=== PATIENT | female | born 1990 | race Caucasian/White ===

== ENCOUNTER 2016-05-08 08:41 | Emergency (ER) | payer OTHER ==
[~2016-05-08 08:41] MED LIST: BUSP10TA PO; LEVO125T3 PO; OMEP10CASR PO; PAXI20TA3 PO; SING10TA32 PO
--- NOTE | 2016-05-08 10:21 | EDDOCDS ---
Physician Documentation [facility] Name: Kolton Olivares Age: 26 yrs Sex: Female : 1990 Arrival Date: 05/08/2016 Time: 08:41 Bed 7 Private MD: Titus Grace Disposition: 05/08/16 09:59 Discharged to Other. Impression: Fall (on) (from) other stairs and steps - DISCHARGE TO LABOR AND DELIVERY FOR OBSERVATION, related conditions, unspecified. - Condition is Stable. - Medication Reconciliation, Local Pharmacy Hours form. - Follow up: Maria E Benedict CNM; When: Today; Reason: Recheck today's complaints. - Problem is new. - Symptoms have improved. Historical: - Allergies: No known drug Allergies; - Home Meds: 1. BuSpar 15 mg oral tab 3 times per day 2. levothyroxine 100 mcg Oral tab once daily 3. omeprazole 40 mg Oral cpDR 2 times per day 4. Latuda 40 mg oral tab 1 tab once daily - PMHx: Anxiety; Asthma; Hypothyroidism; - PSHx: ; - Social history: Smoking status: Patient states former smoker of tobacco. No barriers to communication noted, The patient speaks fluent Divehi. - Family history: Not pertinent. - : The pt / caregiver states he / she is not on anticoagulants. Home medication list is obtained from the patient, Med[employer] import data. - Exposure Risk Screening:: None identified. 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 2 in. (157.48 cm) (R); Pain 7/10; 09:06 BP 134 / 82 (auto/); kc3 09:08 Pulse 86 MON; Pulse Ox 98% ; kc3 10:20 BP 107 / 53; Pulse 67; Resp 18; Pulse Ox 99% ; Pain 7/10; hs1 08:54 Body Mass Index 42.98 (106.59 kg, 157.48 cm) kcs MDM: 09:03 Heart Tones ordered. fg 09:22 Urinalysis Ordered. EDMS 09:22 Urine Culture Ordered. EDMS 09:39 Financial registration complete. pm4 09:45 [facility] Payment Agreement was scanned into [employer] and attached to record. pm4 09:58 Dex (Kleihauer Betke) Ordered. EDMS 09:59 Fibrinogen Ordered. EDMS Signatures: Dispatcher MedHost EDMS Gertrudis Martinez RN RN [facility] Vickie Finnegan RN RN hs1 Shamika Ramos MD MD Josesito Pan, Reg Reg pm4 The chart was reviewed and I authenticate all verbal orders and agree with the evaluation and treatment provided.Attachments: 09:45 [facility] Payment Agreement pm4 MTDD
--- NOTE | 2016-05-08 10:21 | EDDOCDS ---
Nurse's Notes [facility] Name: Kolton Olivares Age: 26 yrs Sex: Female : 1990 Arrival Date: 05/08/2016 Time: 08:41 Bed 7 Private MD: Titus Grace Diagnosis: Fall (on) (from) other stairs and steps-DISCHARGE TO LABOR AND DELIVERY FOR OBSERVATION; related conditions, unspecified Presentation: 05/08 08:50 Presenting complaint: Patient states: she has fallen twice in the last week - is 28 kcs weeks - spoke with her OB after the incidents and was told to rest and would be ok as long as no bleeding. Continues to have a lot of pain in her pelvic area - worse when she tries to open her legs. Mechanism of Injury: Fall slipped on icy steps and landed on her buttocks. Adult Sepsis Screening: The patient does not have new or worsening altered mentation. Patient's respiratory rate is less than 22. Systolic blood pressure is greater than 100. Patient has a qSOFA score of 0- Negative Sepsis Screen. Suicide/Homicide risk assessment- the patient denies having any suicidal and/or homicidal ideations and does not present with any other emotional, behavioral or mental health complaints. Status: Patient is not a child protective services specialist or dependent. Transition of care: patient was not received from another setting of care. 08:50 Acuity: JOSUE Level 3 kcs 08:50 Method Of Arrival: Walkin/Carried/Asstd kcs 10:20 Acute neurological deficits are not present. hs1 Triage Assessment: 08:54 General: Appears comfortable, well developed, well nourished, well groomed. Pain: kcs Location: pelvic area Pain currently is 7 out of 10 on a pain scale. HIV screening NA for this visit Offered previously. Neurological: Level of Consciousness is awake, alert. Respiratory: Airway is patent Respiratory effort is even, unlabored, Respiratory pattern is regular, symmetrical. : Denies vaginal bleeding. Derm: Skin is intact, is healthy with good turgor, Skin is dry, Skin is normal. 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 BuSpar 15 mg oral tab 3 times per day 2. levothyroxine 100 mcg Oral tab once daily 3. omeprazole 40 mg Oral cpDR 2 times per day 4. Latuda 40 mg oral tab 1 tab once daily - PMHx: Anxiety; Asthma; Hypothyroidism; - PSHx: ; - Social history: Smoking status: Patient states former smoker of tobacco. No barriers to communication noted, The patient speaks fluent Montenegrin. - Family history: Not pertinent. - : The pt / caregiver states he / she is not on anticoagulants. Home medication list is obtained from the patient, [employer] import data. - Exposure Risk Screening:: None identified. Screenin:23 Screening information is obtained from the patient. Fall risk: At risk due to prior kc3 history of falls, The following interventions are performed due to a positive Fall Risk Screen: Fall Risk is added to Special Handling on the patient Summary Screen. A Fall Risk Bracelet was applied to the patient. Side Rails are placed in the up position. A Call Tai is given with instruction to call for help when getting out of bed. Fall Alert bracelet is placed on the patient. Assistance ADL's: requires no assistance with activities of daily living. Abuse/DV Screen: The patient / caregiver reports he/she is: not in a situation that causes fear, pain or injury. Nutritional screening: No deficits noted. home support is adequate. 10:20 Advance Directives: There is no active DNR order. hs1 Assessment: 09:21 General: Appears uncomfortable, Behavior is appropriate for age, cooperative, Pt kc3 reports positive movement. . Pain: Location: pelvis and lower back Pain currently is 7 out of 10 on a pain scale. Alleviated by standing. Neurological: Level of Consciousness is awake, alert, obeys commands, Oriented to person, place, time. Respiratory: Respiratory effort is even, unlabored, Respiratory pattern is regular, symmetrical. : Denies vaginal bleeding. Derm: Skin is pink, warm & dry. Musculoskeletal: Circulation, motion, and sensation intact Range of motion intact in all extremities. 09:24 General: Pt's OB is Maria E Benedict hand shaker. . kc3 10:19 General: Appears in no apparent distress, comfortable, Behavior is appropriate for age, hs1 cooperative. Pain: Location: pelvis Pain currently is 8 out of 10 on a pain scale. Quality of pain is described as pressure. Derm: Skin is pink, warm & dry. normal. Vital Signs: 08:54 BP 120 / 69; Pulse 87; Resp 20; Temp 96.5(O); Pulse Ox 98% on R/A; Weight 106.59 kg kcs (R); Height 5 ft. 2 in. (157.48 cm) (R); Pain 7/10; 09:06 BP 134 / 82 (auto/); kc3 09:08 Pulse 86 MON; Pulse Ox 98% ; kc3 10:20 BP 107 / 53; Pulse 67; Resp 18; Pulse Ox 99% ; Pain 7/10; hs1 08:54 Body Mass Index 42.98 (106.59 kg, 157.48 cm) kcs Vitals: 08:54 Log In Time: May 08, 2016 at 08:41. kcs 09:21 Heart Tones 140BPM. kc3 ED Course: 08:43 Patient visited by Josesito Pan Reg. pm4 08:43 Patient moved to Waiting pm4 08:44 Titus Grace is Private Physician. pm4 08:53 Triage Initiated kcs 08:58 Pam Cunningham,RN is Primary Nurse. kcs 08:58 Patient moved to 7 kcs 08:59 Shamika Ramos MD is Attending Physician. fg 08:59 Patient visited by Shamika Ramos MD. fg 09:24 Patient visited by Pam Cunningham RN. kc3 09:26 Urine Culture Sent. kc3 09:26 Urinalysis Sent. kc3 09:45 [facility] Payment Agreement was scanned into [employer] and attached to record. pm4 09:51 Assist provider with pelvic exam: Performed by Shamika Ramos MD Patient tolerated well. kc3 No specimens obtained. 09:52 Patient visited by Pam Cunningham,MARY. kc3 09:58 Maria E Benedict CNM is Referral Physician. fg 10:14 Dex (Kleihauer Betke) Sent. kc3 10:14 Fibrinogen Sent. kc3 10:20 The patient / caregiver is instructed regarding the plan of care and ED course. hs1 10:21 No IV's were initiated during this patient's visit. hs1 Order Results: Lab Order: Urinalysis; SPEC'M 05/08/16 09:25 Test: APPEARANCE, URINE; Value: CLEAR; Range: CLEAR; Status: F Test: COLOR, URINE; Value: STRAW; Range: YELLOW; Status: F Test: PH,URINE; Value: 6.0; Range: 5.0-9.0; Units: UNITS; Status: F Test: SPECIFIC GRAVITY URINE AUTO; Value: 1.006; Range: 1.002-1.035; Status: F Test: PROTEIN, URINE AUTO; Value: NEGATIVE; Range: NEGATIVE; Units: mg/dL; Status: F Test: GLUCOSE, URINE (UA) AUTO; Value: NEGATIVE; Range: NEGATIVE; Units: mg/dL; Status: F Test: KETONE, URINE AUTO; Value: NEGATIVE; Range: NEGATIVE; Units: mg/dL; Status: F Test: UROBILINOGEN, URINE AUTO; Value: 0.2; Range: 0.0-2.0; Units: mg/dL; Status: F Test: BILIRUBIN, URINE AUTO; Value: NEGATIVE; Range: NEGATIVE; Status: F Test: NITRITE, URINE AUTO; Value: NEGATIVE; Range: NEGATIVE; Status: F Test: LEUKOCYTE ESTERASE, URINE AUTO; Value: NEGATIVE; Range: NEGATIVE; Status: F Test: BLOOD, URINE BLOOD; Value: NEGATIVE; Range: NEGATIVE; Status: F Test: WBC, URINE AUTO; Value: 0; Range: 0-3; Units: /HPF; Status: F Test: RBC, URINE AUTO; Value: 2; Range: 0-3; Units: /HPF; Status: F Test: BACTERIA, URINE AUTO; Value: NEGATIVE; Range: NEGATIVE; Status: F Test: SQUAMOUS EPITHELIAL CELL UR AU; Value: 3; Range: 0-6; Units: /HPF; Status: F Test: MUCUS, URINE; Value: SMALL; Range: NEGATIVE; Status: F Test: HYALINE CAST, URINE AUTO; Value: 0; Range: 0-1; Units: /LPF; Status: F Outcome: 09:59 Discharge ordered by Provider. fg 10:20 Discharge Assessment: Patient awake, alert and oriented x 3. No cognitive and/or hs1 functional deficits noted. Patient verbalized understanding of disposition instructions. patient administered narcotics - no. The following High Risk Discharge criteria are identified: None. Discharged to Labor and Delivery. Condition: stable. Discharge instructions given to patient, Instructed on follow up and referral plans. No special radiology studies were completed. Property :Personal belongings accompany Pt. 10:21 Patient left the ED. hs1 Signatures: Gertrudis Martinez, RN RN kcs Vickie Finnegan RN RN hs1 Shamika Ramos MD MD Pam Cunningham RN RN kc3 Josesito Pan, Reg Reg pm4 MTDD
[2016-05-08] MEDS ORDERED: LATU40TA PO (11:22)
--- NOTE | 2016-05-10 11:21 | EDDOCDS ---
Nurse's Notes [facility] Name: Kolton Olivares Age: 26 yrs Sex: Female : 1990 Arrival Date: 05/08/2016 Time: 08:41 Bed 7 Private MD: Titus Grace Diagnosis: Fall (on) (from) other stairs and steps-DISCHARGE TO LABOR AND DELIVERY FOR OBSERVATION; related conditions, unspecified Presentation: 05/08 08:50 Presenting complaint: Patient states: she has fallen twice in the last week - is 28 kcs weeks - spoke with her OB after the incidents and was told to rest and would be ok as long as no bleeding. Continues to have a lot of pain in her pelvic area - worse when she tries to open her legs. Mechanism of Injury: Fall slipped on icy steps and landed on her buttocks. Adult Sepsis Screening: The patient does not have new or worsening altered mentation. Patient's respiratory rate is less than 22. Systolic blood pressure is greater than 100. Patient has a qSOFA score of 0- Negative Sepsis Screen. Suicide/Homicide risk assessment- the patient denies having any suicidal and/or homicidal ideations and does not present with any other emotional, behavioral or mental health complaints. Status: Patient is not a claim service representative or dependent. Transition of care: patient was not received from another setting of care. 08:50 Acuity: JOSUE Level 3 kcs 08:50 Method Of Arrival: Walkin/Carried/Asstd kcs 10:20 Acute neurological deficits are not present. hs1 Triage Assessment: 08:54 General: Appears comfortable, well developed, well nourished, well groomed. Pain: kcs Location: pelvic area Pain currently is 7 out of 10 on a pain scale. HIV screening NA for this visit Offered previously. Neurological: Level of Consciousness is awake, alert. Respiratory: Airway is patent Respiratory effort is even, unlabored, Respiratory pattern is regular, symmetrical. : Denies vaginal bleeding. Derm: Skin is intact, is healthy with good turgor, Skin is dry, Skin is normal. 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 BuSpar 15 mg oral tab 3 times per day 2. levothyroxine 100 mcg Oral tab once daily 3. omeprazole 40 mg Oral cpDR 2 times per day 4. Latuda 40 mg oral tab 1 tab once daily - PMHx: Anxiety; Asthma; Hypothyroidism; - PSHx: ; - Social history: Smoking status: Patient states former smoker of tobacco. No barriers to communication noted, The patient speaks fluent Algerian. - Family history: Not pertinent. - : The pt / caregiver states he / she is not on anticoagulants. Home medication list is obtained from the patient, [employer] import data. - Exposure Risk Screening:: None identified. Screenin:23 Screening information is obtained from the patient. Fall risk: At risk due to prior kc3 history of falls, The following interventions are performed due to a positive Fall Risk Screen: Fall Risk is added to Special Handling on the patient Summary Screen. A Fall Risk Bracelet was applied to the patient. Side Rails are placed in the up position. A Call Tai is given with instruction to call for help when getting out of bed. Fall Alert bracelet is placed on the patient. Assistance ADL's: requires no assistance with activities of daily living. Abuse/DV Screen: The patient / caregiver reports he/she is: not in a situation that causes fear, pain or injury. Nutritional screening: No deficits noted. home support is adequate. 10:20 Advance Directives: There is no active DNR order. hs1 Assessment: 09:21 General: Appears uncomfortable, Behavior is appropriate for age, cooperative, Pt kc3 reports positive movement. . Pain: Location: pelvis and lower back Pain currently is 7 out of 10 on a pain scale. Alleviated by standing. Neurological: Level of Consciousness is awake, alert, obeys commands, Oriented to person, place, time. Respiratory: Respiratory effort is even, unlabored, Respiratory pattern is regular, symmetrical. : Denies vaginal bleeding. Derm: Skin is pink, warm & dry. Musculoskeletal: Circulation, motion, and sensation intact Range of motion intact in all extremities. 09:24 General: Pt's OB is Maria E Benedict licensed direct entry midwife. . kc3 10:19 General: Appears in no apparent distress, comfortable, Behavior is appropriate for age, hs1 cooperative. Pain: Location: pelvis Pain currently is 8 out of 10 on a pain scale. Quality of pain is described as pressure. Derm: Skin is pink, warm & dry. normal. Vital Signs: 08:54 BP 120 / 69; Pulse 87; Resp 20; Temp 96.5(O); Pulse Ox 98% on R/A; Weight 106.59 kg kcs (R); Height 5 ft. 2 in. (157.48 cm) (R); Pain 7/10; 09:06 BP 134 / 82 (auto/); kc3 09:08 Pulse 86 MON; Pulse Ox 98% ; kc3 10:20 BP 107 / 53; Pulse 67; Resp 18; Pulse Ox 99% ; Pain 7/10; hs1 08:54 Body Mass Index 42.98 (106.59 kg, 157.48 cm) kcs Vitals: 08:54 Log In Time: May 08, 2016 at 08:41. kcs 09:21 Heart Tones 140BPM. kc3 ED Course: 08:43 Patient visited by Josesito Pan Reg. pm4 08:43 Patient moved to Waiting pm4 08:44 Titus Grace is Private Physician. pm4 08:53 Triage Initiated kcs 08:58 Pam Cunningham,RN is Primary Nurse. kcs 08:58 Patient moved to 7 kcs 08:59 Shamika Ramos MD is Attending Physician. fg 08:59 Patient visited by Shamika Ramos MD. fg 09:24 Patient visited by Pam Cunningham RN. kc3 09:26 Urine Culture Sent. kc3 09:26 Urinalysis Sent. kc3 09:45 [facility] Payment Agreement was scanned into [employer] and attached to record. pm4 09:51 Assist provider with pelvic exam: Performed by Shamika Ramos MD Patient tolerated well. kc3 No specimens obtained. 09:52 Patient visited by Pam Cunningham,MARY. kc3 09:58 Maria E Benedict CNM is Referral Physician. fg 10:14 Dex (Kleihauer Betke) Sent. kc3 10:14 Fibrinogen Sent. kc3 10:20 The patient / caregiver is instructed regarding the plan of care and ED course. hs1 10:21 No IV's were initiated during this patient's visit. hs1 14:27 T-Sheet-- Draft Copy was scanned into [employer] and attached to record. gb Order Results: Lab Order: Urinalysis; SPEC'M 05/08/16 09:25 Test: APPEARANCE, URINE; Value: CLEAR; Range: CLEAR; Status: F Test: COLOR, URINE; Value: STRAW; Range: YELLOW; Status: F Test: PH,URINE; Value: 6.0; Range: 5.0-9.0; Units: UNITS; Status: F Test: SPECIFIC GRAVITY URINE AUTO; Value: 1.006; Range: 1.002-1.035; Status: F Test: PROTEIN, URINE AUTO; Value: NEGATIVE; Range: NEGATIVE; Units: mg/dL; Status: F Test: GLUCOSE, URINE (UA) AUTO; Value: NEGATIVE; Range: NEGATIVE; Units: mg/dL; Status: F Test: KETONE, URINE AUTO; Value: NEGATIVE; Range: NEGATIVE; Units: mg/dL; Status: F Test: UROBILINOGEN, URINE AUTO; Value: 0.2; Range: 0.0-2.0; Units: mg/dL; Status: F Test: BILIRUBIN, URINE AUTO; Value: NEGATIVE; Range: NEGATIVE; Status: F Test: NITRITE, URINE AUTO; Value: NEGATIVE; Range: NEGATIVE; Status: F Test: LEUKOCYTE ESTERASE, URINE AUTO; Value: NEGATIVE; Range: NEGATIVE; Status: F Test: BLOOD, URINE BLOOD; Value: NEGATIVE; Range: NEGATIVE; Status: F Test: WBC, URINE AUTO; Value: 0; Range: 0-3; Units: /HPF; Status: F Test: RBC, URINE AUTO; Value: 2; Range: 0-3; Units: /HPF; Status: F Test: BACTERIA, URINE AUTO; Value: NEGATIVE; Range: NEGATIVE; Status: F Test: SQUAMOUS EPITHELIAL CELL UR AU; Value: 3; Range: 0-6; Units: /HPF; Status: F Test: MUCUS, URINE; Value: SMALL; Range: NEGATIVE; Status: F Test: HYALINE CAST, URINE AUTO; Value: 0; Range: 0-1; Units: /LPF; Status: F Lab Order: Urine Culture; SPEC'M 05/08/16 09:25 Test: URINE CULTURE; Value: URINE CULTURE RESULT NO GROWTH; Status: F Lab Order: Fibrinogen; SPEC'M 05/08/16 10:12 Test: FIBRINOGEN; Value: 392; Range: 221-452; Units: MG/DL; Status: F Lab Order: Dex (Kleihauer Betke); SPEC'M 05/08/16 10:12 Test: DEX (MOY MACKENZIE); Value: 0.0000; Units: RATIO; Status: F Test Note: ; No cells seen. Outcome: 09:59 Discharge ordered by Provider. fg 10:20 Discharge Assessment: Patient awake, alert and oriented x 3. No cognitive and/or hs1 functional deficits noted. Patient verbalized understanding of disposition instructions. patient administered narcotics - no. The following High Risk Discharge criteria are identified: None. Discharged to Labor and Delivery. Condition: stable. Discharge instructions given to patient, Instructed on follow up and referral plans. No special radiology studies were completed. Property :Personal belongings accompany Pt. 10:21 Patient left the ED. hs1 Signatures: Gertrudis Martinez, RN RN [facility] Sintia Quesada, Reg Reg gb Vickie Finnegan RN RN hs1 Shamika Ramos MD MD Pam Cunningham RN RN kc3 Josesito Pan, Reg Reg pm4 Chart Complete YELENA
--- NOTE | 2016-05-10 11:21 | EDDOCDS ---
Physician Documentation [facility] Name: Kolton Olivares Age: 26 yrs Sex: Female : 1990 Arrival Date: 05/08/2016 Time: 08:41 Bed 7 Private MD: Titus Grace Disposition: 05/08/16 09:59 Discharged to Other. Impression: Fall (on) (from) other stairs and steps - DISCHARGE TO LABOR AND DELIVERY FOR OBSERVATION, related conditions, unspecified. - Condition is Stable. - Medication Reconciliation, Local Pharmacy Hours form. - Follow up: Maria E Benedict CNM; When: Today; Reason: Recheck today's complaints. - Problem is new. - Symptoms have improved. Historical: - Allergies: No known drug Allergies; - Home Meds: 1. BuSpar 15 mg oral tab 3 times per day 2. levothyroxine 100 mcg Oral tab once daily 3. omeprazole 40 mg Oral cpDR 2 times per day 4. Latuda 40 mg oral tab 1 tab once daily - PMHx: Anxiety; Asthma; Hypothyroidism; - PSHx: ; - Social history: Smoking status: Patient states former smoker of tobacco. No barriers to communication noted, The patient speaks fluent Italian. - Family history: Not pertinent. - : The pt / caregiver states he / she is not on anticoagulants. Home medication list is obtained from the patient, Med[employer] import data. - Exposure Risk Screening:: None identified. 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 2 in. (157.48 cm) (R); Pain 7/10; 09:06 BP 134 / 82 (auto/); kc3 09:08 Pulse 86 MON; Pulse Ox 98% ; kc3 10:20 BP 107 / 53; Pulse 67; Resp 18; Pulse Ox 99% ; Pain 7/10; hs1 08:54 Body Mass Index 42.98 (106.59 kg, 157.48 cm) kcs MDM: 09:03 Heart Tones ordered. fg 09:22 Urinalysis Ordered. EDMS 09:22 Urine Culture Ordered. EDMS 09:39 Financial registration complete. pm4 09:45 [facility] Payment Agreement was scanned into [employer] and attached to record. pm4 09:58 Dex (Kleihauer Betke) Ordered. EDMS 09:59 Fibrinogen Ordered. EDMS 14:27 T-Sheet-- Draft Copy was scanned into [employer] and attached to record. gb Signatures: Dispatcher [employer] EDGertrudis Anne, RN RN [facility] Sintia Quesada, Reg Reg gb Vickie Finnegan RN RN hs1 Shamika Ramos MD MD Josesito Pan, Reg Reg pm4 The chart was reviewed and I authenticate all verbal orders and agree with the evaluation and treatment provided.Attachments: 09:45 [facility] Payment Agreement pm4 14:27 T-Sheet-- Draft Copy gb Chart Complete MTDD
--- NOTE | 2016-05-10 11:21 | EDDOCDS ---
Physician Documentation [facility] Name: Kolton Olivares Age: 26 yrs Sex: Female : 1990 Arrival Date: 05/08/2016 Time: 08:41 Bed 7 Private MD: Titus Grace Disposition: 05/08/16 09:59 Discharged to Other. Impression: Fall (on) (from) other stairs and steps - DISCHARGE TO LABOR AND DELIVERY FOR OBSERVATION, related conditions, unspecified. - Condition is Stable. - Medication Reconciliation, Local Pharmacy Hours form. - Follow up: Maria E Benedict CNM; When: Today; Reason: Recheck today's complaints. - Problem is new. - Symptoms have improved. Historical: - Allergies: No known drug Allergies; - Home Meds: 1. BuSpar 15 mg oral tab 3 times per day 2. levothyroxine 100 mcg Oral tab once daily 3. omeprazole 40 mg Oral cpDR 2 times per day 4. Latuda 40 mg oral tab 1 tab once daily - PMHx: Anxiety; Asthma; Hypothyroidism; - PSHx: ; - Social history: Smoking status: Patient states former smoker of tobacco. No barriers to communication noted, The patient speaks fluent Yakut. - Family history: Not pertinent. - : The pt / caregiver states he / she is not on anticoagulants. Home medication list is obtained from the patient, [employer] import data. - Exposure Risk Screening:: None identified. 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 2 in. (157.48 cm) (R); Pain 7/10; 09:06 BP 134 / 82 (auto/); kc3 09:08 Pulse 86 MON; Pulse Ox 98% ; kc3 10:20 BP 107 / 53; Pulse 67; Resp 18; Pulse Ox 99% ; Pain 7/10; hs1 08:54 Body Mass Index 42.98 (106.59 kg, 157.48 cm) kcs MDM: 09:03 Heart Tones ordered. fg 09:22 Urinalysis Ordered. EDMS 09:22 Urine Culture Ordered. EDMS 09:39 Financial registration complete. pm4 09:45 [facility] [place] Payment Agreement was scanned into [employer] and attached to record. pm4 09:58 Dex (Kleihauer Betke) Ordered. EDMS 09:59 Fibrinogen Ordered. EDMS 14:27 T-Sheet-- Draft Copy was scanned into [employer] and attached to record. gb Signatures: Dispatcher [employer] EDGertrudis Anne, RN RN [facility] Sintia Quesada, Reg Reg gb Vickie Finnegan RN RN hs1 Shamika Ramos MD MD Josesito Pan, Reg Reg pm4 The chart was reviewed and I authenticate all verbal orders and agree with the evaluation and treatment provided.Attachments: 09:45 [facility] [place] Payment Agreement pm4 14:27 T-Sheet-- Draft Copy gb Chart Complete MTDD
== END 2016-05-08 10:21 | disposition home or self-care (01) ==
LOC: M ED 08:41
DX: M54.9 Dorsalgia, unspecified (principal); W00.2XXA Other fall from one level to another due to ice and snow, initial encounter; Y92.019 Unspecified place in single-family (private) house as the place of occurrence of the external cause; Y93.89 Activity, other specified; Y99.8 Other external cause status; O99.342 Other mental disorders complicating pregnancy, second trimester; F41.9 Anxiety disorder, unspecified; O99.513 Diseases of the respiratory system complicating pregnancy, third trimester; J45.909 Unspecified asthma, uncomplicated; E03.9 Hypothyroidism, unspecified; Z87.891 Personal history of nicotine dependence; Z79.899 Other long term (current) drug therapy; Z3A.28 28 weeks gestation of pregnancy

== ENCOUNTER 2016-05-08 10:27 | Outpatient (CLI) | payer OTHER ==
[~2016-05-08] VITALS: Ht 157.5 cm; Wt 105.0 kg
[2016-05-08 10:44] VITALS: BP 124/60
[2016-05-08] MEDS ORDERED: LATU40TA PO (11:22)
== END 2016-05-08 11:24 | disposition home or self-care (01) ==
LOC: M LDO 10:27
PROVIDERS: ATTEND Specialist
DX: O99.89 Other specified diseases and conditions complicating pregnancy, childbirth and the puerperium (principal); R10.2 Pelvic and perineal pain; W10.9XXA Fall (on) (from) unspecified stairs and steps, initial encounter; Y92.9 Unspecified place or not applicable; Y93.9 Activity, unspecified; Y99.9 Unspecified external cause status; Z3A.26 26 weeks gestation of pregnancy

== ENCOUNTER 2016-06-29 21:27 | Outpatient (CLI) | payer OTHER ==
[~2016-06-29] VITALS: Ht 157.5 cm; Wt 110.0 kg
[~2016-06-29 21:27] MED LIST changes: +LATU40TA PO
[2016-06-29] MEDS ORDERED: PRENTAB9 PO (22:04)
== END 2016-06-29 22:45 | disposition home or self-care (01) ==
LOC: M LDO 21:27
PROVIDERS: ATTEND Advanced Practice Midwife
DX: O47.03 False labor before 37 completed weeks of gestation, third trimester (principal); Z3A.34 34 weeks gestation of pregnancy

== ENCOUNTER → 2016-07-13 | Outpatient (REF) | payer OTHER ==
[~2016-07-13] MED LIST changes: +PRENTAB9 PO
== END ==
LOC: M LAB REF 13:19
PROVIDERS: ATTEND Specialist
DX: Z36 Encounter for antenatal screening of mother (principal)

== ENCOUNTER 2016-08-01 07:36 | Inpatient (IN) | payer OTHER ==
[2016-08-01] VITALS (10 sets, daily range): BP systolic 131–154; BP diastolic 68–86
[~2016-08-01] VITALS: Ht 154.9 cm; Wt 118.0 kg
[2016-08-01] MEDS ORDERED: BICITRA 30ML SOLN UDC PO ONE (08:15)
[2016-08-01] MEDS ORDERED: LR 1,000 ML IV SCH ×2 (08:15→13:00)
[2016-08-01] MEDS ORDERED: LR 800 ML IV ONE (08:15)
[2016-08-01 08:40] LABS: MEAN CORPUSCULAR HEMOGLOBIN 26.4 pg (27.0-33.0); MEAN CORPUSCULAR HGB CONC 31.6 g/dl (32.0-36.5); MEAN CORPUSCULAR VOLUME 83.5 fl (80.0-96.0); RED CELL DISTRIBUTION WIDTH 14.9 % (11.5-14.5); WHITE BLOOD COUNT 10.1 K/mm3 (4.0-10.0)
[2016-08-01] MEDS: PRENATAL VITAMIN TAB PO SCH (09:00)
[2016-08-01] MEDS ORDERED: OXYTOCIN INJ 10 UNITS/ML VIAL (J2590) As Ordered ONE (10:48)
[2016-08-01] MEDS ORDERED: MORPHINE PRES-FREE INJ 10 MG/10 ML VIAL (J2274) As Ordered ONE (10:48)
[2016-08-01] MEDS ORDERED: METOCLOPRAMIDE INJ 10MG/2ML VIAL (J2765) IV PRN ×2 (10:58→13:00)
[2016-08-01] MEDS ORDERED: NALBUPHINE HCL 10 MG/ML AMP (J2300) IV PRN ×2 (10:58→13:00)
[2016-08-01] MEDS ORDERED: NALOXONE INJ 0.4 MG/1 ML VIAL (J2310) IV PRN ×2 (10:58)
[2016-08-01] MEDS ORDERED: ONDANSETRON 4MG/2ML VIAL (J2405) IV PRN ×3 (10:58→13:00)
[2016-08-01] MEDS ORDERED: ePHEDrine SULFATE 25 MG/5 ML(5MG/ML) SYRINGE As Ordered ONE (11:11)
[2016-08-01] MEDS ORDERED: KETOROLAC 60 MG/2 ML VIAL (J1885) As Ordered ONE (11:14)
[2016-08-01] MEDS ORDERED: ONDANSETRON 4MG/2ML VIAL (J2405) As Ordered ONE (11:14)
[2016-08-01] MEDS ORDERED: LIDOCAINE 2% INJ 100 MG/5 ML SDV (FOR ANES.) As Ordered ONE (11:43)
[2016-08-01] MEDS ORDERED: PROPOFOL 200 MG/20 ML VIAL As Ordered ONE ×2 (11:43→11:46)
[2016-08-01] MEDS: LR 1,000 ML IV SCH ×2 (12:29→20:29)
[2016-08-01] MEDS ORDERED: MEASLES,MUMPS,RUBELLA VACCINE INJ (MMR-II) (90707) SC SCH (12:30)
[2016-08-01] MEDS ORDERED: RHOGAM 300 MCG (1500 IU) INJ (J2790) IM SCH (12:30)
[2016-08-01] MEDS ORDERED: DOCUSATE SODIUM 100 MG CAP PO PRN (12:30)
[2016-08-01] MEDS ORDERED: PERCOCET 5MG/325MG TAB PO PRN ×2 (12:30→13:00)
[2016-08-01] MEDS ORDERED: OXYTOCIN DRIP 30 UNITS in APPROPRIATE DILUENT 1 EA IV ONE (12:45)
--- NOTE | 2016-08-01 12:52 | RO ---
DATE OF OPERATION: 08/01/2016 PREOPERATIVE DIAGNOSIS: 39-0/7 weeks' gestation, prior (C) section. POSTOPERATIVE DIAGNOSIS: 39-0/7 weeks' gestation, prior section. PROCEDURE: Elective repeat low transverse section. SURGEON: Abhishek Olmos MD INFRASTRUCTURE TECHNICIAN: Sebastian Rojas DO ANESTHESIA: Spinal. ESTIMATED BLOOD LOSS: 600 mL. URINE OUTPUT: 50 mL. FLUIDS: 1300 mL lactated Ringer (LR). FINDINGS: 3630 gram or 8-pound 0-ounce male , scores 7 and 9, vertex position. She had adhesions of omentum, as well as sigmoid colon to the anterior abdominal wall at the level of the incision. Normal fallopian tubes and ovaries. DESCRIPTION OF PROCEDURE: Operative summary: The patient taken the operating room, where spinal anesthesia was induced. She was prepped and draped in sterile fashion in the supine position. Eldridge catheter was placed. A Pfannenstiel skin incision was made with the scalpel and carried through to the fascia. The fascia was nicked and extended. The fascia was dissected off the rectus muscles. The peritoneal cavity was entered. A bladder flap was created. A curvilinear incision was made in the lower uterine segment until clear fluid was noted. This was extended manually. The was delivered from the vertex position without difficulty. The infant cried spontaneously. The was handed to the awaiting nurses. The placenta was delivered and appeared to be intact. The uterus was exteriorized and cleared of clots and debris. The uterine incision was closed with 0 Vicryl in a running locked fashion. A second imbricating layer of 0 Vicryl was placed. The uterus was placed back in the abdominal cavity. Omental adhesions at the anterior abdominal wall were taken down sharply. An area of the sigmoid colon was adherent to the anterior abdominal wall. This was also taken down sharply. An abrasion to the serosa from the adhesion was oversewn with 0 Vicryl suture. There was no evidence of injury to the lumen or muscularis of the colon. The remainder of the sigmoid colon was inspected. The appendix was inspected. Everything appeared normal. The peritoneum was closed with 2-0 Vicryl in a running fashion. The fascia was closed with 0 Vicryl in a running fashion. The subcutaneous tissue was irrigated. The deep layers closed with 3-0 chromic. The skin was closed with Monocryl. A Prevena wound vacuum-assisted closure (VAC) was placed over the incision. Sponge, instrument, and needle counts were correct. The patient went to the recovery room in stable condition.
[2016-08-01] MEDS ORDERED: HYDROmorphone HCL 1 MG/ML SYRINGE (J1170) IV PRN (13:00)
[2016-08-01] MEDS ORDERED: diphenhydrAMINE INJ 50MG/ML VIAL (J1200) IV PRN (13:00)
[2016-08-01] MEDS ORDERED: fentaNYL 100 MCG/2 ML INJECTION (J3010) IV PRN (13:00)
[2016-08-01] MEDS ORDERED: MEPERIDINE INJ 25 MG/ML VIAL (J2175) IV PRN (13:00)
[2016-08-01] MEDS: KETOROLAC 30 MG/ML VIAL (J1885) IV SCH ×2 (16:52→22:43)
[2016-08-02 02:23] VITALS: BP 122/67
[2016-08-02] MEDS: KETOROLAC 30 MG/ML VIAL (J1885) IV SCH ×2 (05:39→11:00)
[2016-08-02 05:53] VITALS: BP 136/67
[2016-08-02 07:06] LABS: MEAN CORPUSCULAR HEMOGLOBIN 26.9 pg (27.0-33.0); MEAN CORPUSCULAR HGB CONC 32.2 g/dl (32.0-36.5); MEAN CORPUSCULAR VOLUME 83.5 fl (80.0-96.0); RED CELL DISTRIBUTION WIDTH 15.1 % (11.5-14.5); WHITE BLOOD COUNT 10.3 K/mm3 (4.0-10.0)
[2016-08-02] MEDS ORDERED: OXYC1TAB23 PO (07:22)
[2016-08-02] MEDS: PRENATAL VITAMIN TAB PO SCH (07:47)
[2016-08-02] MEDS: OMEPRAZOLE 20 MG CAP PO SCH ×2 (08:27→20:18)
[2016-08-02] MEDS ORDERED: OMEPRAZOLE 20 MG CAP PO SCH (09:00)
[2016-08-02 10:00] VITALS: BP 120/53
[2016-08-02 14:00] VITALS: BP 124/63
[2016-08-02] MEDS: IBUPROFEN 800 MG TAB PO SCH (17:46)
[2016-08-02 18:02] VITALS: BP 141/63
[2016-08-02] MEDS: PERCOCET 5MG/325MG TAB PO PRN (20:20)
[2016-08-02 22:29] VITALS: BP 137/72
[2016-08-03] MEDS: IBUPROFEN 800 MG TAB PO SCH ×3 (02:37→18:09)
[2016-08-03 06:00] VITALS: BP 141/83
[2016-08-03] MEDS: PERCOCET 5MG/325MG TAB PO PRN ×3 (06:07→21:02)
[2016-08-03] MEDS ORDERED: IBUP-1114 PO (07:57)
[2016-08-03] MEDS ORDERED: OXYC1TAB23 PO (07:57)
--- NOTE | 2016-08-03 08:08 | DSES ---
DATE OF ADMISSION: 08/01/2016 DATE OF DISCHARGE: 08/04/2016 26-year-old G3, P1 female 39-0/7 weeks gestation presents for elective repeat section. She has a history of one prior section. HOSPITAL COURSE: The patient was admitted on 08/01/2016. She underwent repeat low transverse section without complication. Result was an 8 pound female . 7 and 9. Her postoperative course was unremarkable. She had adequate return of bladder and bowel function. She was deemed stable for discharge on postop day #2. ADMISSION DIAGNOSIS: 39 weeks. Prior section. DISCHARGE DIAGNOSIS: Delivered. PROCEDURE: Repeat low transverse section. DISPOSITION: Patient to followup with Dr. Olmos in 2 weeks for incision check. Instructions were reviewed. YELENA
[2016-08-03] MEDS: PRENATAL VITAMIN TAB PO SCH (08:14)
[2016-08-03] MEDS: OMEPRAZOLE 20 MG CAP PO SCH ×2 (08:14→21:00)
[2016-08-03] MEDS: DOCUSATE SODIUM 100 MG CAP PO SCH ×2 (17:45→21:00)
[2016-08-03 18:02] VITALS: BP 131/57
[2016-08-03] MEDS: SIMETHICONE 80 MG CHEW TAB PO PRN (18:15)
[2016-08-04] MEDS: SIMETHICONE 80 MG CHEW TAB PO PRN ×2 (00:29→07:30)
[2016-08-04] MEDS: IBUPROFEN 800 MG TAB PO SCH (03:04)
[2016-08-04 05:36] VITALS: BP 136/65
--- NOTE | 2016-08-04 06:38 | DSES ---
DATE OF ADMISSION: 08/01/2016 DATE OF DISCHARGE: 08/04/2016 DISCHARGE DIAGNOSIS: Repeat section at term, postoperative day #3 stable condition. HISTORY: Kolton a 26-year-old, 3, para 2-0-1-2 now, who underwent repeat section for planned delivery at 39 weeks gestation. Her hospital course has been reasonably uncomplicated. She is voiding without difficulty. Pain is well controlled with oral medication. She has been out of bed for self care, infant care and pieter care. Plan is to discharge the patient to home today. Prescriptions have been prescribed by Dr. Olmos for Percocet five 5/325 1-2 tablets by mouth every 6 hours as needed for pain and ibuprofen as needed. I did review discharge instructions that include breast care, incision care, pieter care, pelvic rest, activity and lifting restrictions, access to care and other danger signs to report to her provider. She is to followup for a 2-week incision check and a 6-week appointment at [facility].
[2016-08-04] MEDS ORDERED: IBUP-1114 PO (07:29)
[2016-08-04] MEDS: OMEPRAZOLE 20 MG CAP PO SCH (07:30)
[2016-08-04] MEDS: PRENATAL VITAMIN TAB PO SCH (07:30)
[2016-08-04] MEDS: DOCUSATE SODIUM 100 MG CAP PO SCH (07:30)
[2016-08-04] MEDS: PERCOCET 5MG/325MG TAB PO PRN (07:31)
== END 2016-08-04 10:45 | disposition home or self-care (01) | DRG 540 ==
LOC: M LDI 07:36 → M OBS 13:55
PROVIDERS: ADMIT Specialist; ATTEND Specialist
PROC: 10D00Z1 Extraction of Products of Conception, Low, Open Approach (ICD-10-PCS; principal; 2016-08-01 09:30)
DX: O34.211 Maternal care for low transverse scar from previous cesarean delivery (principal); Z37.0 Single live birth; Z3A.39 39 weeks gestation of pregnancy

== ENCOUNTER 2017-02-16 08:08 | Emergency (ER) | payer OTHER ==
[~2017-02-16] VITALS: Ht 157.5 cm; Wt 100.0 kg
[~2017-02-16 08:08] MED LIST changes: +ACET50TA PO; +BUSP15TA47 PO; +IBUP-1114 PO; +LATU20TA PO; +LEVO10VL IM; -LEVO125T3 PO; +LEVO125T4 PO; +OMEP40CA2 PO; +OXYC1TAB23 PO; +PAXI20TA29 PO; -PAXI20TA3 PO
[2017-02-16] MEDS ORDERED: PAXI40TA10 (08:27)
[2017-02-16] MEDS ORDERED: SUCRALFATE SUSP 1GM/10ML UD PO ONE (08:45)
[2017-02-16] MEDS ORDERED: NS 1,000 ML IV ONE (08:45)
[2017-02-16] MEDS ORDERED: DICYCLOMINE INJ 20MG/2ML (J0500) IM ONE (08:45)
[2017-02-16 09:20] LABS: CONTROL LINE HCG INT CTR LINE PRESENT
[2017-02-16 09:28] LABS: ALBUMIN 3.6 GM/DL (3.2-5.2); ALBUMIN/GLOBULIN RATIO 1.16 (1.00-1.93); ALKALINE PHOSPHATASE 69 U/L (45-117); ALT/SGPT 18 U/L (12-78); ANION GAP 9 MEQ/L (8-16); AST/SGOT 9 U/L (15-37); BILIRUBIN,DIRECT < 0.1 MG/DL (0.0-0.2); BILIRUBIN,TOTAL 0.2 MG/DL (0.2-1.0); BLOOD UREA NITROGEN 15 MG/DL (7-18); CALCIUM LEVEL 9.3 MG/DL (8.5-10.1); CARBON DIOXIDE LEVEL 27 MEQ/L (21-32); CHLORIDE LEVEL 105 MEQ/L (98-107); CREATININE FOR GFR 0.74 MG/DL (0.55-1.02); GLOMERULAR FILTRATION RATE > 60.0 (>60); GLUCOSE, FASTING 91 MG/DL (70-105); POTASSIUM SERUM 4.5 MEQ/L (3.5-5.1); SODIUM LEVEL 141 MEQ/L (136-145); TOTAL PROTEIN 6.7 GM/DL (6.4-8.2)
[2017-02-16 09:32] LABS: BASO % 0.3 % (0.0-1.0); EOS # 0.1 10^3/uL (0.0-0.50); EOS % 1.7 % (0.0-3.0); IMMATURE GRANULOCYTE % 0.4 % (0-0); LYMPH # 2.6 10^3/uL (1.5-6.5); LYMPH % 37.2 % (24.0-44.0); MEAN CORPUSCULAR HEMOGLOBIN 25.3 pg (27.0-33.0); MEAN CORPUSCULAR HGB CONC 30.6 g/dl (32.0-36.5); MEAN CORPUSCULAR VOLUME 82.7 fl (80.0-96.0); MONO # 0.5 10^3/uL (0.0-0.8); MONO % 7.4 % (0.0-5.0); NEUTROPHILS # 3.7 10^3/uL (1.8-7.7); PLATELET COUNT, AUTOMATED 287 10^3/uL (150-450); RED CELL DISTRIBUTION WIDTH 15.4 % (11.5-14.5)
[2017-02-16] MEDS ORDERED: SUCR1SS PO (09:44)
[2017-02-16] MEDS ORDERED: BENT10CA PO (09:45)
[2017-02-16 10:05] VITALS: BP 107/53
== END 2017-02-16 10:25 | disposition home or self-care (01) ==
LOC: M ED 08:08
DX: R19.7 Diarrhea, unspecified (principal); Z79.899 Other long term (current) drug therapy
CPT/HCPCS: 80048; 80076; 83690; 84703; 85025; 96372; 99283; J0500

== ENCOUNTER → 2017-03-02 | Outpatient (CLI) | payer OTHER ==
[~2017-03-02] MED LIST changes: +BENT10CA PO; +PAXI40TA10; +SUCR1SS PO
== END ==
LOC: M SMT 08:39
PROVIDERS: ATTEND Advanced Practice Midwife
DX: N76.0 Acute vaginitis (principal)

== ENCOUNTER 2017-04-27 08:09 | Emergency (ER) | payer OTHER ==
[~2017-04-27] VITALS: Ht 157.5 cm; Wt 95.5 kg
[2017-04-27] MEDS ORDERED: NUVAMIS2 (08:20)
[2017-04-27] MEDS ORDERED: ROBIMIS PO (08:20)
[2017-04-27] MEDS ORDERED: CEFD1CAP8 PO (08:20)
[2017-04-27] MEDS ORDERED: predniSONE 20 MG TAB PO ONE (08:45)
[2017-04-27] MEDS ORDERED: ALBUTEROL SULFATE 2.5 MG/0.5 ML INH NEB SOLN NEB ONE (08:45)
[2017-04-27] MEDS ORDERED: GUAI100S7 PO (09:26)
--- NOTE | 2017-04-27 09:30 | REP ---
CHEST, TWO VIEWS: There is no evidence of acute infiltrate. No pleural effusion is seen. The heart is normal in size. The mediastinal silhouette is unremarkable. The visualized osseous structures are intact. IMPRESSION: No acute pulmonary disease. Signed by Kuldip Johnson MD 04/27/2017 11:52 A
[2017-04-27 09:38] VITALS: BP 132/67
== END 2017-04-27 09:38 | disposition home or self-care (01) ==
LOC: M ED 08:09
DX: J06.9 Acute upper respiratory infection, unspecified (principal); J45.909 Unspecified asthma, uncomplicated; F33.9 Major depressive disorder, recurrent, unspecified; F41.9 Anxiety disorder, unspecified; F60.9 Personality disorder, unspecified; Z79.899 Other long term (current) drug therapy; Z79.3 Long term (current) use of hormonal contraceptives; F17.210 Nicotine dependence, cigarettes, uncomplicated

== ENCOUNTER → 2017-09-28 | Outpatient (REF) | payer OTHER ==
[2017-09-28 20:20] LABS: CHLAMYDIA DNA AMPLIFICATION POSITIVE (NEGATIVE); GC DNA AMPLIFICATION NEGATIVE (NEGATIVE)
== END ==
LOC: M LAB REF 17:09
DX: Z11.3 Encounter for screening for infections with a predominantly sexual mode of transmission (principal)

== ENCOUNTER → 2017-10-17 | Outpatient (REF) | payer OTHER ==
[2017-10-17 20:18] LABS: CHLAMYDIA DNA AMPLIFICATION NEGATIVE (NEGATIVE); GC DNA AMPLIFICATION NEGATIVE (NEGATIVE)
== END ==
LOC: M LAB REF 17:03
DX: Z11.3 Encounter for screening for infections with a predominantly sexual mode of transmission (principal)

== ENCOUNTER → 2018-01-11 | Outpatient (REF) | payer OTHER ==
[2018-01-11 20:52] LABS: CHLAMYDIA DNA AMPLIFICATION NEGATIVE (NEGATIVE); GC DNA AMPLIFICATION NEGATIVE (NEGATIVE)
== END ==
LOC: M LAB REF 16:53
DX: Z11.3 Encounter for screening for infections with a predominantly sexual mode of transmission (principal)
CPT/HCPCS: 87591

== ENCOUNTER 2018-02-27 07:25 | Emergency (ER) | payer OTHER ==
[2018-02-27] MEDS: CLINDAMYCIN 900 MG in APPROPRIATE DILUENT 1 EA IV (08:46)
[2018-02-27] MEDS: KETOROLAC 30 MG/ML VIAL (J1885) IV (08:46)
[2018-02-27] MEDS: ACETAMINOPH W/CODEINE #3 TAB UD PO (08:46)
[2018-02-27 08:54] LABS: BASO % 0.3 % (0.0-1.0); EOS # 0.1 10^3/uL (0.0-0.50); HEMATOCRIT 38.5 % (36.0-47.0); HEMOGLOBIN 12.1 g/dl (12.0-15.5); IMMATURE GRANULOCYTE % 0.8 % (0-3.0); LYMPH # 2.8 10^3/uL (1.5-6.5); LYMPH % 22.9 % (24.0-44.0); MEAN CORPUSCULAR HEMOGLOBIN 24.9 pg (27.0-33.0); MEAN CORPUSCULAR HGB CONC 31.4 g/dl (32.0-36.5); MEAN CORPUSCULAR VOLUME 79.2 fl (80.0-96.0); MONO # 0.9 10^3/uL (0.0-0.8); MONO % 7.2 % (0.0-5.0); NEUTROPHILS # 8.2 10^3/uL (1.8-7.7); NEUTROPHILS % 67.8 % (36.0-66.0); PLATELET COUNT, AUTOMATED 426 10^3/uL (150-450); RED BLOOD COUNT 4.86 10^6/uL (4.00-5.40); RED CELL DISTRIBUTION WIDTH 17.6 % (11.5-14.5); WHITE BLOOD COUNT 12.2 10^3/uL (4.0-10.0)
[2018-02-27 09:09] LABS: ANION GAP 8 MEQ/L (8-16); BLOOD UREA NITROGEN 11 MG/DL (7-18); CALCIUM LEVEL 9.4 MG/DL (8.5-10.1); CARBON DIOXIDE LEVEL 28 MEQ/L (21-32); CHLORIDE LEVEL 104 MEQ/L (98-107); CREATININE FOR GFR 0.77 MG/DL (0.55-1.30); GLOMERULAR FILTRATION RATE > 60.0 (>60); GLUCOSE, FASTING 95 MG/DL (70-100); POTASSIUM SERUM 3.9 MEQ/L (3.5-5.1); SODIUM LEVEL 140 MEQ/L (136-145)
[2018-02-27 09:18] LABS: ERYTHROCYTE SEDIMENTATION RATE 7 mm/hr (0-20)
[2018-02-27] MEDS ORDERED: ISOVUE-370 76% 100ML VIAL (Q9967) As Ordered (09:33)
== END 2018-02-27 11:10 | disposition home or self-care (01) ==
LOC: M ED 07:25
DX: K11.20 Sialoadenitis, unspecified (principal); L02.01 Cutaneous abscess of face; I10 Essential (primary) hypertension; J45.909 Unspecified asthma, uncomplicated; E03.9 Hypothyroidism, unspecified; F41.9 Anxiety disorder, unspecified; F32.9 Major depressive disorder, single episode, unspecified; F60.9 Personality disorder, unspecified; Z79.899 Other long term (current) drug therapy
CPT/HCPCS: Q9967

== ENCOUNTER → 2018-05-29 | Outpatient (REF) | payer OTHER ==
[~2018-05-29] MED LIST changes: +ACET30TAB PO; -ACET50TA PO; +CEFD1CAP8 PO; +CLEO300C2 PO; +GUAI100S27 PO; +MAPA500T2 PO; +NUVAMIS2; +ROBIMIS PO
== END ==
LOC: M LAB REF 18:43
PROVIDERS: ATTEND Advanced Practice Midwife
DX: Z12.4 Encounter for screening for malignant neoplasm of cervix (principal)

== ENCOUNTER → 2018-05-29 | Outpatient (REF) | payer OTHER ==
[2018-05-29 19:47] LABS: CHLAMYDIA DNA AMPLIFICATION NEGATIVE (NEGATIVE); GC DNA AMPLIFICATION NEGATIVE (NEGATIVE)
== END ==
LOC: M LAB REF 17:05
PROVIDERS: ATTEND Advanced Practice Midwife
DX: Z11.3 Encounter for screening for infections with a predominantly sexual mode of transmission (principal)

== ENCOUNTER → 2018-12-04 | Outpatient (CLI) | payer MEDICAID ==
[~2018-12-04] MED LIST changes: +ACET-716 PO; -ACET30TAB PO; +GUAI100L6 PO; -GUAI100S27 PO
== END ==
LOC: M OUTALCOH 14:02
PROVIDERS: ATTEND Psychiatry & Neurology Psychiatry
DX: Z13.9 Encounter for screening, unspecified (principal); F12.20 Cannabis dependence, uncomplicated

== ENCOUNTER 2019-01-03 13:00 | Outpatient (RCR) | payer MEDICAID | END 2019-01-04 | LOC: M OUTALCOH 13:00 | PROVIDERS: ATTEND Psychiatry & Neurology Psychiatry | DX: F12.20 Cannabis dependence, uncomplicated (principal) ==

== ENCOUNTER 2019-01-22 15:00 | Outpatient (RCR) | payer MEDICAID | END 2019-02-03 | LOC: M OUTALCOH 15:00 | PROVIDERS: ATTEND Psychiatry & Neurology Psychiatry | DX: F12.20 Cannabis dependence, uncomplicated (principal) ==

== ENCOUNTER → 2019-02-16 | Outpatient (REF) | payer OTHER ==
[~2019-02-16] MED LIST changes: +AMOX500C PO; +AZIT-12 PO; +CLON-589 PO; +PRED20TA PO; +SERO50TA4 PO; +TESS100C PO
== END ==
LOC: M LAB REF 09:23
PROVIDERS: ATTEND Physician Assistant
DX: J20.9 Acute bronchitis, unspecified (principal)

== ENCOUNTER 2019-02-19 05:49 | Emergency (ER) | payer MEDICAID, OTHER ==
[~2019-02-19] VITALS: Ht 157.5 cm; Wt 102.3 kg
[~2019-02-19 05:49] MED LIST changes: -AMOX500C PO; -AZIT-12 PO; -CLON-589 PO; -OMEP40CA2 PO; +OMEP40CA97 PO; -PRED20TA PO; -SERO50TA4 PO; -TESS100C PO
[2019-02-19] MEDS ORDERED: CLON-589 PO (06:00)
[2019-02-19] MEDS ORDERED: SERO50TA4 PO (06:00)
[2019-02-19] MEDS ORDERED: AZIT-12 PO (06:29)
[2019-02-19] MEDS ORDERED: PRED20TA PO (06:29)
[2019-02-19] MEDS ORDERED: IBUPROFEN 600 MG TAB PO ONE (06:30)
[2019-02-19] MEDS ORDERED: AMOX500C PO (07:14)
[2019-02-19] MEDS ORDERED: TESS100C PO (07:14)
[2019-02-19 07:25] VITALS: BP 148/79
== END 2019-02-19 07:30 | disposition home or self-care (01) ==
LOC: M ED 05:49
DX: J02.9 Acute pharyngitis, unspecified (principal); H66.92 Otitis media, unspecified, left ear; I10 Essential (primary) hypertension; J45.909 Unspecified asthma, uncomplicated; E03.9 Hypothyroidism, unspecified; F32.9 Major depressive disorder, single episode, unspecified; F60.9 Personality disorder, unspecified; Z79.899 Other long term (current) drug therapy

== ENCOUNTER → 2019-02-25 | Outpatient (REF) | payer OTHER ==
[~2019-02-25] MED LIST changes: +AMOX500C PO; +AZIT-12 PO; +CLON-589 PO; +PRED20TA PO; +SERO50TA4 PO; +TESS100C PO
[2019-02-25 10:40] LABS: BASO # 0.1 10^3/uL (0.0-0.2); BASO % 0.4 % (0.0-1.0); EOS # 0.3 10^3/uL (0.0-0.5); HEMATOCRIT 37.7 % (36.0-47.0); HEMOGLOBIN 11.5 g/dl (12.0-15.5); LYMPH # 4.2 10^3/uL (1.5-5.0); LYMPH % 32.6 % (24.0-44.0); MEAN CORPUSCULAR HEMOGLOBIN 25.2 pg (27.0-33.0); MEAN CORPUSCULAR HGB CONC 30.5 g/dl (32.0-36.5); MEAN CORPUSCULAR VOLUME 82.7 fl (80.0-96.0); MONO # 0.8 10^3/uL (0.0-0.8); MONO % 6.1 % (0.0-5.0); NEUTROPHILS # 7.5 10^3/uL (1.5-8.5); NEUTROPHILS % 58.4 % (36.0-66.0); PLATELET COUNT, AUTOMATED 484 10^3/uL (150-450); RED BLOOD COUNT 4.56 10^6/uL (4.00-5.40); WHITE BLOOD COUNT 12.9 10^3/uL (4.0-10.0)
[2019-02-25 11:22] LABS: ALBUMIN 3.5 GM/DL (3.2-5.2); ALT/SGPT 21 U/L (12-78); BILIRUBIN,TOTAL 0.2 MG/DL (0.2-1.0); BLOOD UREA NITROGEN 12 MG/DL (7-18); CALCIUM LEVEL 9.3 MG/DL (8.5-10.1); CARBON DIOXIDE LEVEL 30 MEQ/L (21-32); CHLORIDE LEVEL 103 MEQ/L (98-107); CHOLESTEROL LEVEL 218 MG/DL (<200); CHOLESTEROL RISK RATIO 3.694 (<5); CREATININE FOR GFR 0.72 MG/DL (0.55-1.30); FREE T4 0.66 NG/DL (0.76-1.46); GLOMERULAR FILTRATION RATE > 60.0 (>60); GLUCOSE, FASTING 79 MG/DL (70-100); HDL CHOLESTEROL 59 MG/DL (>40); LDL CHOLESTEROL 126 MG/DL (<100); NON-HDL-C 159 MG/DL; POTASSIUM SERUM 4.9 MEQ/L (3.5-5.1); SODIUM LEVEL 138 MEQ/L (136-145); TOTAL PROTEIN 7.4 GM/DL (6.4-8.2); TRIGLYCERIDES LEVEL 166 MG/DL (<150)
[2019-02-25 12:00] LABS: HEMOGLOBIN A1c 6.1 %
== END ==
LOC: M SFHCPLAZ 09:33
PROVIDERS: ATTEND Physician Assistant Medical
DX: E03.9 Hypothyroidism, unspecified (principal); E66.01 Morbid (severe) obesity due to excess calories; K21.9 Gastro-esophageal reflux disease without esophagitis; Z13.220 Encounter for screening for lipoid disorders

== ENCOUNTER → 2019-06-06 | Outpatient (REF) | payer OTHER ==
[2019-06-06 13:21] LABS: APPEARANCE, URINE HAZY (CLEAR); BACTERIA, URINE AUTO NEGATIVE (NEGATIVE); BILIRUBIN, URINE AUTO NEGATIVE (NEGATIVE); BLOOD, URINE BLOOD NEGATIVE (NEGATIVE); COLOR, URINE YELLOW (YELLOW); GLUCOSE, URINE (UA) AUTO NEGATIVE (NEGATIVE); KETONE, URINE AUTO NEGATIVE (NEGATIVE); LEUKOCYTE ESTERASE, URINE AUTO TRACE (NEGATIVE); NITRITE, URINE AUTO NEGATIVE (NEGATIVE); PROTEIN, URINE AUTO NEGATIVE (NEGATIVE); RBC, URINE AUTO 5 /HPF (0-3); SPECIFIC GRAVITY URINE AUTO 1.018 (1.002-1.035); SQUAMOUS EPITHELIAL CELL UR AU 2 /HPF (0-6); UROBILINOGEN, URINE AUTO 0.2 mg/dL (0.0-2.0); WBC, URINE AUTO 1 /HPF (0-3)
== END ==
LOC: M SFHCPLAZ 12:46
PROVIDERS: ATTEND Nurse Practitioner Family
DX: N98.9 Complication associated with artificial fertilization, unspecified (principal)

== ENCOUNTER → 2019-06-19 | Outpatient (REF) | payer OTHER ==
[2019-06-19 21:37] LABS: CHLAMYDIA DNA AMPLIFICATION NEGATIVE (NEGATIVE); GC DNA AMPLIFICATION NEGATIVE (NEGATIVE)
== END ==
LOC: M SFHCWAGY 16:58
PROVIDERS: ATTEND Nurse Practitioner Family
DX: Z11.3 Encounter for screening for infections with a predominantly sexual mode of transmission (principal)

== ENCOUNTER → 2019-11-19 | Outpatient (CLI) | payer OTHER ==
[2019-11-19 14:08] LABS: FREE T4 0.88 NG/DL (0.76-1.46); THYROID STIMULATING HORMONE 13.9 uIU/ML (0.358-3.740)
== END ==
LOC: M PLALAB 08:56
PROVIDERS: ATTEND Physician Assistant Medical
DX: E03.9 Hypothyroidism, unspecified (principal)

== ENCOUNTER → 2019-12-22 | Outpatient (REF) | payer OTHER ==
[2020-01-21 15:50] LABS: CHLAMYDIA DNA AMPLIFICATION NEGATIVE (NEGATIVE); GC DNA AMPLIFICATION NEGATIVE (NEGATIVE)
== END ==
LOC: M SFHCWAGY 10:23
PROVIDERS: ATTEND Nurse Practitioner Women's Health
DX: Z11.3 Encounter for screening for infections with a predominantly sexual mode of transmission (principal)

== ENCOUNTER → 2020-07-06 | Outpatient (CLI) | payer OTHER ==
--- NOTE | 2020-07-06 12:06 | REP ---
INDICATION: CONTUSION COMPARISON: None. TECHNIQUE: Five views right knee. FINDINGS: There is no evidence of acute fracture, dislocation, or intrinsic bone disease.The joint spaces appear normal. There is no radiographic evidence of a joint effusion. IMPRESSION: No fracture or dislocation. <Electronically signed by Kuldip Johnson > 07/06/20 [id number]
== END ==
LOC: M WUC 11:00
PROVIDERS: ATTEND Physician Assistant
DX: S80.01XA Contusion of right knee, initial encounter (principal); X58.XXXA Exposure to other specified factors, initial encounter; Y92.89 Other specified places as the place of occurrence of the external cause; Y93.89 Activity, other specified; Y99.8 Other external cause status

== ENCOUNTER → 2020-08-30 | Outpatient (REF) | payer OTHER ==
[2020-08-30 17:43] LABS: BASO % 0.2 % (0.0-1.0); EOS # 0.2 10^3/uL (0.0-0.5); EOS % 2.1 % (0.0-3.0); HEMATOCRIT 34.3 % (36.0-47.0); HEMOGLOBIN 10.3 g/dl (12.0-15.5); LYMPH # 3.3 10^3/uL (1.5-5.0); LYMPH % 32.5 % (24.0-44.0); MEAN CORPUSCULAR HEMOGLOBIN 23.7 pg (27.0-33.0); MEAN CORPUSCULAR VOLUME 78.9 fl (80.0-96.0); MONO # 0.7 10^3/uL (0.0-0.8); MONO % 6.7 % (2.0-8.0); NEUTROPHILS # 5.8 10^3/uL (1.5-8.5); NEUTROPHILS % 57.9 % (36.0-66.0); PLATELET COUNT, AUTOMATED 442 10^3/uL (150-450); RED BLOOD COUNT 4.35 10^6/uL (4.00-5.40)
[2020-08-30 18:20] LABS: ALBUMIN 3.7 GM/DL (3.2-5.2); ALT/SGPT 52 U/L (12-78); BILIRUBIN,TOTAL 0.3 MG/DL (0.2-1.0); BLOOD UREA NITROGEN 13 MG/DL (7-18); CALCIUM LEVEL 9.6 MG/DL (8.5-10.1); CARBON DIOXIDE LEVEL 29 MEQ/L (21-32); CHLORIDE LEVEL 103 MEQ/L (98-107); CHOLESTEROL LEVEL 247 MG/DL (<200); CHOLESTEROL RISK RATIO 7.057 (<5); CREATININE FOR GFR 0.72 MG/DL (0.55-1.30); FREE T4 0.72 NG/DL (0.76-1.46); GLOMERULAR FILTRATION RATE > 60.0 (>60); GLUCOSE, FASTING 123 MG/DL (70-100); HDL CHOLESTEROL 35 MG/DL (>40); LDL CHOLESTEROL 144 MG/DL (<100); NON-HDL-C 212 MG/DL; SODIUM LEVEL 138 MEQ/L (136-145); TOTAL PROTEIN 7.2 GM/DL (6.4-8.2); TRIGLYCERIDES LEVEL 338 MG/DL (<150)
[2020-08-30 18:28] LABS: HEMOGLOBIN A1c 6.2 %
== END ==
LOC: M SFHCPLAZ 15:07
PROVIDERS: ATTEND Physician Assistant Medical
DX: E03.9 Hypothyroidism, unspecified (principal); K21.9 Gastro-esophageal reflux disease without esophagitis; R73.01 Impaired fasting glucose; Z13.220 Encounter for screening for lipoid disorders

== ENCOUNTER → 2020-10-07 | Outpatient (REF) | payer OTHER ==
[2020-10-07 13:50] LABS: FREE T4 0.8 NG/DL (0.76-1.46); THYROID STIMULATING HORMONE 12.7 uIU/ML (0.358-3.740)
== END ==
LOC: M PLALAB 10:31
PROVIDERS: ATTEND Physician Assistant Medical
DX: E03.9 Hypothyroidism, unspecified (principal)

== ENCOUNTER 2020-12-30 16:39 | Outpatient (CLI) | payer OTHER ==
[~2020-12-30] VITALS: Ht 157.5 cm; Wt 122.7 kg
[~2020-12-30 16:39] MED LIST changes: +OMEP40CA4 PO; -OMEP40CA97 PO
[2020-12-30 17:25] VITALS: BP 131/79
[2020-12-30] MEDS ORDERED: diphenhydrAMINE 25MG CAP PO ONE (17:30)
[2020-12-30] MEDS ORDERED: NS 1,000 ML IV SCH (17:30)
[2020-12-30] MEDS ORDERED: methylPREDNISolone 125MG 2ML VIAL IV PRN (18:00)
[2020-12-30] MEDS ORDERED: ALBUTEROL 90 MCG/ACT 8GM HFA INHALER INH PRN (18:00)
[2020-12-30] MEDS ORDERED: ALBUTEROL SULFATE 2.5 MG/0.5 ML INH NEB SOLN INH PRN (18:00)
[2020-12-30] MEDS ORDERED: CASIRIVIMAB/IMDEVIMAB 1,200 MG in NS 250 ML IV ONE (18:00)
[2020-12-30] MEDS ORDERED: diphenhydrAMINE 50MG/ML VIAL (J1200) IV PRN (18:00)
[2020-12-30] MEDS ORDERED: EPINEPHrine INJ 1 MG/ML 1ML AMP IM PRN (18:00)
[2020-12-30 18:32] VITALS: BP 141/86
[2020-12-30 19:09] VITALS: BP 143/85
[2020-12-30 19:31] VITALS: BP 132/83
== END 2020-12-30 19:31 ==
LOC: M OPCLI4PR 16:39 → M 4MAIN 16:44 → M OPCLI4PR 16:44 → M MS4PR 16:50 → M OPCLI4PR 19:31
PROVIDERS: ATTEND Physician Assistant Medical
DX: U07.1 COVID-19 (principal); R51.9 Headache, unspecified

== ENCOUNTER → 2021-05-14 | Outpatient (REF) ==
[~2021-05-14] MED LIST changes: -CEFD1CAP8 PO; +CEFD300C41 PO
== END ==
LOC: M LABSMTC 10:19
PROVIDERS: ATTEND Pediatrics
DX: Z11.52 Encounter for screening for COVID-19 (principal)

== ENCOUNTER 2022-07-01 09:00 | Emergency (ER) | payer OTHER ==
[~2022-07-01] VITALS: Ht 157.5 cm; Wt 101.8 kg
[~2022-07-01 09:00] MED LIST changes: -LATU40TA PO; +LATU40TA2 PO; +MONT-5 PO; -PAXI20TA29 PO; +PAXI20TA30 PO; -PAXI40TA10; +PAXI40TA12; -SING10TA32 PO
[2022-07-01] MEDS ORDERED: ATOM60CA7 (09:19)
[2022-07-01] MEDS ORDERED: BUSP15TA47 (09:19)
[2022-07-01] MEDS ORDERED: PARO5TAB (09:19)
[2022-07-01 10:06] LABS: BASO % 0.4 % (0.0-1.0); EOS # 0.2 10^3/uL (0.0-0.5); EOS % 1.9 % (0.0-3.0); HEMATOCRIT 27.4 % (36.0-47.0); HEMOGLOBIN 7.7 g/dl (12.0-15.5); LYMPH # 2.8 10^3/uL (1.5-5.0); LYMPH % 25.6 % (24.0-44.0); MEAN CORPUSCULAR HEMOGLOBIN 18.9 pg (27.0-33.0); MEAN CORPUSCULAR HGB CONC 28.1 g/dl (32.0-36.5); MEAN CORPUSCULAR VOLUME 67.2 fl (80.0-96.0); MONO # 0.7 10^3/uL (0.0-0.8); MONO % 6.1 % (2.0-8.0); NEUTROPHILS # 7.1 10^3/uL (1.5-8.5); NEUTROPHILS % 65.5 % (36.0-66.0); PLATELET COUNT, AUTOMATED 423 10^3/uL (150-450); RED BLOOD COUNT 4.08 10^6/uL (4.00-5.40); WHITE BLOOD COUNT 10.8 10^3/uL (4.0-10.0)
[2022-07-01 10:38] LABS: LIPASE 68 U/L (12-53)
[2022-07-01 10:39] LABS: HCG, SERUM QUALITATIVE NEGATIVE (NEGATIVE)
[2022-07-01 10:40] LABS: ALBUMIN 3.5 G/DL (3.2-5.2); ALKALINE PHOSPHATASE 62 U/L (46-116); ALT/SGPT 15 U/L (7.0-40); AST/SGOT 17 U/L (<34); BILIRUBIN,DIRECT < 0.1 MG/DL (<0.4); BILIRUBIN,TOTAL 0.2 MG/DL (0.3-1.2); BLOOD UREA NITROGEN 12 MG/DL (9-23); CALCIUM LEVEL 8.5 MG/DL (8.5-10.1); CARBON DIOXIDE LEVEL 27 MMOL/L (20-31); CHLORIDE LEVEL 109 MMOL/L (98-107); CREATININE FOR GFR 0.67 MG/DL (0.55-1.30); GLOMERULAR FILTRATION RATE > 60.0 (>60); GLUCOSE, FASTING 92 MG/DL (60-100); POTASSIUM SERUM 4.5 MMOL/L (3.5-5.1); SODIUM LEVEL 140 MMOL/L (136-145); TOTAL PROTEIN 6.4 G/DL (5.7-8.2)
[2022-07-01 11:02] LABS: AMPHETAMINES LEVEL URINE NEGATIVE (NEGATIVE); BARBITURATES URINE NEGATIVE (NEGATIVE); BENZODIAZEPINES URINE NEGATIVE (NEGATIVE); METHADONE URINE NEGATIVE (NEGATIVE); OPIATES URINE NEGATIVE (NEGATIVE); PHENCYCLIDINE URINE NEGATIVE (NEGATIVE)
[2022-07-01 11:19] LABS: CANNABINOIDS URINE POSITIVE (NEGATIVE); COCAINE METABOLITE URINE POSITIVE (NEGATIVE)
[2022-07-01] MEDS ORDERED: KETOROLAC 30 MG/ML 1ML VIAL IV ONE (11:20)
[2022-07-01] MEDS ORDERED: ONDANSETRON 4MG 2ML VIAL IV ONE (11:20)
[2022-07-01] MEDS ORDERED: PANTOPRAZOLE 40MG VIAL IV ONE (11:20)
[2022-07-01] MEDS ORDERED: NS 1,000 ML IV ONE (11:20)
[2022-07-01 11:34] LABS: INR 0.87
[2022-07-01] MEDS ORDERED: ISOVUE-370 76% 100ML VIAL As Ordered ONE (11:40)
[2022-07-01] MEDS ORDERED: PANT40TA29 PO (14:54)
[2022-07-01] MEDS ORDERED: ONDA4TAB6 PO (14:54)
[2022-07-01] MEDS ORDERED: CARA1TAB6 PO (14:54)
[2022-07-01] MEDS ORDERED: FERR324T21 PO (14:54)
[2022-07-01 15:03] VITALS: BP 134/80
== END 2022-07-01 15:24 | disposition home or self-care (01) ==
LOC: M ED 09:00
DX: D64.9 Anemia, unspecified (principal); R10.9 Unspecified abdominal pain; K59.00 Constipation, unspecified; R14.0 Abdominal distension (gaseous); E66.9 Obesity, unspecified; I10 Essential (primary) hypertension; K21.9 Gastro-esophageal reflux disease without esophagitis; J45.909 Unspecified asthma, uncomplicated; E03.9 Hypothyroidism, unspecified; F41.9 Anxiety disorder, unspecified; F32.9 Major depressive disorder, single episode, unspecified; F60.9 Personality disorder, unspecified; F12.10 Cannabis abuse, uncomplicated; Z79.890 Hormone replacement therapy; Z79.899 Other long term (current) drug therapy
CPT/HCPCS: 74177; 76856; 80048; 80076; 80307; 83690; 84703; 85025; 85610; 86850; 86900; 86901; 93976; 96361; 96374; 96375; 99284; C9113; J1885; J2405

== ENCOUNTER → 2022-12-08 | Outpatient (CLI) | payer OTHER ==
[~2022-12-08] MED LIST changes: +ATOM60CA7; +BUSP15TA47; +CARA1TAB6 PO; +ETON1VAG7; +FERR324T21 PO; -NUVAMIS2; +ONDA4TAB6 PO; +PANT40TA29 PO; +PARO5TAB
[2022-12-08 16:32] LABS: BASO % 0.3 % (0.0-1.0); EOS % 0.1 % (0.0-3.0); HEMATOCRIT 36.2 % (36.0-47.0); HEMOGLOBIN 11.1 g/dl (12.0-15.5); LYMPH # 1.1 10^3/uL (1.5-5.0); LYMPH % 15.4 % (24.0-44.0); MEAN CORPUSCULAR HEMOGLOBIN 24.9 pg (27.0-33.0); MEAN CORPUSCULAR HGB CONC 30.7 g/dl (32.0-36.5); MEAN CORPUSCULAR VOLUME 81.2 fl (80.0-96.0); MONO # 0.7 10^3/uL (0.0-0.8); MONO % 9.8 % (2.0-8.0); NEUTROPHILS # 5.4 10^3/uL (1.5-8.5); PLATELET COUNT, AUTOMATED 356 10^3/uL (150-450); RED BLOOD COUNT 4.46 10^6/uL (4.00-5.40); WHITE BLOOD COUNT 7.3 10^3/uL (4.0-10.0)
== END ==
LOC: M WUC 11:19
PROVIDERS: ATTEND Nurse Practitioner Family
DX: L03.319 Cellulitis of trunk, unspecified (principal); R50.9 Fever, unspecified

== ENCOUNTER 2023-01-24 19:04 | Emergency (ER) | payer OTHER ==
[~2023-01-24] VITALS: Ht 157.5 cm; Wt 104.2 kg
[2023-01-24 19:05] VITALS: BP 143/82; TEMP 97.5; O2SAT 100
== END 2023-01-24 23:43 | disposition left against medical advice (07) ==
LOC: M ED 19:04
DX: Z53.21 Procedure and treatment not carried out due to patient leaving prior to being seen by health care provider (principal)

== ENCOUNTER 2024-05-18 20:37 | Emergency (ER) | payer OTHER ==
[~2024-05-18] VITALS: Ht 157.5 cm; Wt 115.2 kg
[~2024-05-18 20:37] MED LIST changes: +CEFD1CAP9 PO; -CEFD300C41 PO; +ONDA-282 PO; -ONDA4TAB6 PO
[2024-05-18 20:41] VITALS: TEMP 96.8
[2024-05-19] MEDS: METOCLOPRAMIDE INJ 10MG/2ML VIAL IV ONE (01:46)
[2024-05-19] MEDS: MAG SULF 1GM/100ML (MAG RUN) 1 GM in IV 1 EA IV ONE (01:46)
[2024-05-19] MEDS: ACETAMINOPHEN *IV* 1,000 MG in IV 1 EA IV ONE (01:46)
[2024-05-19 02:11] LABS: URINE PREG TEST NEGATIVE (NEGATIVE)
[2024-05-19 05:03] VITALS: BP 126/61; O2SAT 97
== END 2024-05-19 05:05 | disposition home or self-care (01) ==
LOC: M ED 20:37
DX: G43.909 Migraine, unspecified, not intractable, without status migrainosus (principal); F17.290 Nicotine dependence, other tobacco product, uncomplicated; Z79.899 Other long term (current) drug therapy
CPT/HCPCS: 70450; 84703; 96365; 96375; 99284; J0131; J2765; J3475

== ENCOUNTER → 2024-07-03 | Outpatient (CLI) | payer OTHER ==
[2024-07-03 09:47] LABS: BASO % 0.3 % (0.0-1.0); EOS # 0.3 10^3/uL (0.0-0.5); EOS % 2.9 % (0.0-3.0); HEMATOCRIT 36.1 % (36.0-47.0); HEMOGLOBIN 11.3 g/dl (12.0-15.5); LYMPH # 1.9 10^3/uL (1.5-5.0); LYMPH % 22.4 % (24.0-44.0); MEAN CORPUSCULAR HEMOGLOBIN 25.9 pg (27.0-33.0); MEAN CORPUSCULAR HGB CONC 31.3 g/dl (32.0-36.5); MEAN CORPUSCULAR VOLUME 82.8 fl (80.0-96.0); MONO # 0.6 10^3/uL (0.0-0.8); MONO % 7.3 % (2.0-8.0); NEUTROPHILS # 5.7 10^3/uL (1.5-8.5); NEUTROPHILS % 66.6 % (36.0-66.0); PLATELET COUNT, AUTOMATED 394 10^3/uL (150-450); RED BLOOD COUNT 4.36 10^6/uL (4.00-5.40); WHITE BLOOD COUNT 8.6 10^3/uL (4.0-10.0)
[2024-07-03 10:07] LABS: IRON (FE) 48 UG/DL (50-170)
[2024-07-03 10:08] LABS: ALBUMIN 3.6 G/DL (3.2-5.2); ALKALINE PHOSPHATASE 70 U/L (35-104); ALT/SGPT 37 U/L (7.0-40); AST/SGOT 24 U/L (<34); BILIRUBIN,TOTAL 0.3 MG/DL (0.3-1.2); BLOOD UREA NITROGEN 16 MG/DL (9-23); CALCIUM LEVEL 9.3 MG/DL (8.5-10.1); CARBON DIOXIDE LEVEL 27 MMOL/L (20-31); CHLORIDE LEVEL 106 MMOL/L (98-107); CHOLESTEROL LEVEL 222 MG/DL (<200); CHOLESTEROL RISK RATIO 5.79 (<5); CREATININE FOR GFR 0.77 MG/DL (0.55-1.30); GLOMERULAR FILTRATION RATE > 60.0 (>60); GLUCOSE, FASTING 99 MG/DL (60-100); HDL CHOLESTEROL 38.3 MG/DL (>40); LDL CHOLESTEROL 139.1 MG/DL (<100); NON-HDL-C 183.7 MG/DL; POTASSIUM SERUM 4.8 MMOL/L (3.5-5.1); SODIUM LEVEL 138 MMOL/L (136-145); TOTAL PROTEIN 7.2 G/DL (5.7-8.2); TRIGLYCERIDES LEVEL 223 MG/DL (<150)
[2024-07-03 10:09] LABS: FERRITIN 6.6 NG/ML (7.3-270.7); FREE T4 0.72 NG/DL (0.89-1.76); THYROID STIMULATING HORMONE 28.186 uIU/ML (0.55-4.78)
[2024-07-03 10:10] LABS: FOLATE 10.52 NG/ML (>5.4); TOTAL 25(OH) VITAMIN D 22.8 NG/ML (20.0-100.0)
== END ==
LOC: M LAB 09:11
PROVIDERS: ATTEND Registered Nurse Psychiatric/Mental Health
DX: Z79.899 Other long term (current) drug therapy (principal)

== ENCOUNTER → 2024-11-10 | Outpatient (CLI) | payer OTHER ==
[2024-11-10 09:47] LABS: BASO # 0.0 10^3/uL (0.0-0.2); BASO % 0.3 % (0.0-1.0); EOS # 0.2 10^3/uL (0.0-0.5); EOS % 2.7 % (0.0-3.0); LYMPH # 3.0 10^3/uL (1.5-5.0); LYMPH % 33.3 % (24.0-44.0); MONO # 0.7 10^3/uL (0.0-0.8); MONO % 7.5 % (2.0-8.0); NEUTROPHILS # 5.0 10^3/uL (1.5-8.5); NEUTROPHILS % 56.0 % (36.0-66.0); PLATELET COUNT, AUTOMATED 310 10^3/uL (150-450)
[2024-11-10 09:57] LABS: ESTIMATED AVERAGE GLUCOSE 123.0 MG/DL (60-110)
[2024-11-10 10:18] LABS: ALT/SGPT 26 U/L (7.0-40); AST/SGOT 24 U/L (<34); CALCIUM LEVEL 9.3 MG/DL (8.5-10.1); CARBON DIOXIDE LEVEL 26 MMOL/L (20-31); CHLORIDE LEVEL 105 MMOL/L (98-107); CHOLESTEROL LEVEL 143 MG/DL (<200); CHOLESTEROL RISK RATIO 3.93 (<5); CREATININE FOR GFR 0.76 MG/DL (0.55-1.30); GLOMERULAR FILTRATION RATE > 90.0 (>60); IRON (FE) 98 UG/DL (50-170); LDL CHOLESTEROL 70.9 MG/DL (<100); NON-HDL-C 106.7 MG/DL; PERCENT SATURATION 25.9 % (13.2-45.0); POTASSIUM SERUM 4.4 MMOL/L (3.5-5.1); SODIUM LEVEL 141 MMOL/L (136-145); TRIGLYCERIDES LEVEL 179 MG/DL (<150)
[2024-11-10 10:20] LABS: FREE T4 0.81 NG/DL (0.89-1.76)
== END ==
LOC: M LAB 09:15
DX: E78.5 Hyperlipidemia, unspecified (principal)